=== PATIENT | male | born 1970 | race Caucasian/White ===

== ENCOUNTER → 2017-02-06 | Day surgery (SDC) | payer OTHER | END | disposition home or self-care (01) | LOC: FAS 09:49 | DX: K64.1 Second degree hemorrhoids (principal); K29.70 Gastritis, unspecified, without bleeding; F17.210 Nicotine dependence, cigarettes, uncomplicated; F10.10 Alcohol abuse, uncomplicated; J30.9 Allergic rhinitis, unspecified; D64.9 Anemia, unspecified | CPT/HCPCS: 88305; J1100; J2704 ==